=== PATIENT | female | born 1970 | race American Indian/Alaskan Native ===

== ENCOUNTER 2018-10-17 15:35 | Emergency (ER) | payer SELFPAY ==
[2018-10-17] MEDS ORDERED: ZITHROMAX PO ONE (16:23)
[2018-10-17] MEDS ORDERED: FLAGYL PO ONE (16:23)
[2018-10-17] MEDS ORDERED: DIFLUCAN PO ONE (16:23)
[2018-10-17] MEDS ORDERED: ROCEPHIN IM ONE (16:23)
[2018-10-17] MEDS ORDERED: CATAPRES PO ONE (16:23)
[2018-10-17] MEDS ORDERED: XYLOCAINE 1% MPF 5 mL INFILTRATI ONE (16:24)
--- NOTE | 2018-10-17 16:49 | Emergency Department Report ---
ED General Adult HPI - General Chief complaint: High BP Stated complaint: HIGH BP Time Seen by Provider: 10/17/18 16:23 Source: patient Mode of arrival: Ambulatory Limitations: No Limitations - History of Present Illness Initial comments: Patient is a 48-year-old female who is presenting with elevated blood pressure. Patient states she went to the [facility] because she has some vaginal itching and her blood pressure was taken and it was elevated. Patient states she ran out of blood pressure medicines approximately 2 months a go. 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 Patient denies any other symptoms. Patient states she has no chest pain shortness of breath focal neurological deficits nausea vomiting or diarrhea or decreased urination. - Related Data Previous Rx's Medication Instructions Recorded Last Taken Type Amlodipine Besylate [Norvasc] 5 mg PO DAILY #30 tablet 10/17/18 Unknown Rx Allergies Allergy/AdvReac Type Severity Reaction Status Date / Time IV dye Allergy Swelling Uncoded 10/17/18 15:38 ED Review of Systems ROS: Stated complaint: HIGH BP Other details as noted in HPI Comment: All other systems reviewed and negative ED Past Medical Hx - Past Medical History Hx Hypertension: Yes - Social History Smoking Status: Never Smoker Substance Use Type: None - Medications Home Medications: Home Medications Medication Instructions Recorded Confirmed Last Taken Type Amlodipine Besylate [Norvasc] 5 mg PO DAILY #30 tablet 10/17/18 Unknown Rx ED Physical Exam - General Limitations: No Limitations General appearance: alert, in no apparent distress - Head Head exam: Present: atraumatic, normocephalic - Eye Eye exam: Present: normal appearance - ENT ENT exam: Present: mucous membranes moist - Neck Neck exam: Present: normal inspection - Respiratory Respiratory exam: Present: normal lung sounds bilaterally. Absent: respiratory distress, wheezes, rales, rhonchi - Cardiovascular Cardiovascular Exam: Present: regular rate, normal rhythm. Absent: systolic murmur, diastolic murmur, rubs, gallop - GI/Abdominal GI/Abdominal exam: Present: soft, normal bowel sounds. Absent: distended, tenderness, guarding, rebound - Extremities Exam Extremities exam: Present: normal inspection - Back Exam Back exam: Present: normal inspection - Neurological Exam Neurological exam: Present: alert, oriented X3 - Psychiatric Psychiatric exam: Present: normal affect, normal mood - Skin Skin exam: Present: warm, dry, intact, normal color. Absent: rash ED Course Vital Signs 10/17/18 15:55 Temperature 98.5 F Pulse Rate 74 Respiratory 16 Rate Blood Pressure 221/111 [Left] O2 Sat by Pulse 100 Oximetry ED Medical Decision Making - Medical Decision Making Patient is a 48-year-old female who is presenting with elevated blood pressure. Patient has no evidence of any end organ damage at this time. Patient had her blood pressure addressed with [facility]. Patient will also receive prophylactic treatment for STDs as she states she is concerned which is why she went to the [facility]. Patient will be discharged home with prescription for Norvasc and the patient will have follow-up with some Cipro clinic. Critical care attestation.: If time is entered above; I have spent that time in minutes in the direct care of this critically ill patient, excluding procedure time. ED Disposition Clinical Impression: Hypertensive urgency Vaginitis Qualifiers: Chronicity: acute Qualified Code(s): N76.0 - Acute vaginitis Disposition: - TO HOME OR SELFCARE Is pt being admited?: No Does the pt Need Aspirin: No Condition: Stable Instructions: Hypertension (ED) Prescriptions: Amlodipine Besylate [Norvasc] 5 mg PO DAILY #30 tablet Referrals: DALE GIBSON MD [Referring] - 3-5 Days Time of Disposition: 16:57
[2018-10-17 17:51] LABS: Bacteria,Urine 1+ /HPF (Negative); Bilirubin,Urine NEG (Negative); Blood,Urine NEG (Negative); Color,Urine Yellow (Yellow); Mucus,Urine FEW /HPF; Protein,Urine <15 mg/dL mg/dL (Negative); Urobilinogen,Urine < 2.0 mg/dL (<2.0)
[2018-10-17 17:57] VITALS: BP 220/113
== END 2018-10-17 18:06 | disposition home or self-care (01) ==
LOC: ED 15:35
DX: I16.0 Hypertensive urgency (principal); N76.0 Acute vaginitis; Z91.041 Radiographic dye allergy status
CPT/HCPCS: 81001; 87086; 87591; 96372; 99283; J0696

== ENCOUNTER 2021-06-17 12:11 | Outpatient (CLI) | payer OTHER, SELFPAY | END 2021-06-17 12:12 | disposition home or self-care (01) | LOC: LABHHL 12:11 | PROVIDERS: ATTEND Otolaryngology | DX: R59.0 Localized enlarged lymph nodes (principal) | CPT/HCPCS: 88307 ==

== ENCOUNTER 2021-07-06 10:41 | Outpatient (CLI) | payer OTHER ==
--- NOTE | 2021-07-06 12:43 | Magnetic Resonance Report ---
MR thoracic spine wo con INDICATION / CLINICAL INFORMATION: 51 years Female; S22.050 COMPRESSION FRACTURE OF T6 W/ROUTINE HEALING. TECHNIQUE: Multisequence, multiplanar images of the thoracic spine were obtained. COMPARISON: None available. FINDINGS: ALIGNMENT: Minimal excessive kyphosis. VERTEBRAE:Grossly normal marrow signal and vertebral body height for age. Costovertebral, costotransverse, and facet joints demonstrate mild, multilevel areas of degenerative change. Overall, no significant foraminal narrowing appreciated. VISUALIZED SPINAL CORD: There is mild mass effect on the dorsal aspect of the thoracic cord at the T7 -8 level with subtle signal abnormality seen. 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 The thoracic cord is otherwise grossly normal in appearance. Visualized conus medullaris is grossly normal in appearance. INTERVERTEBRAL DISCS: Desiccation seen at multiple levels. There is minimal disc disease at various l evels. No dominant herniation or canal stenosis appreciated. PARASPINAL SOFT TISSUES: No significant abnormality. ADDITIONAL FINDINGS: None. IMPRESSION: 1. Abnormal appearance of the thoracic cord at the T7-8 level, as described above. Myelography might be helpful for further evaluation, if clinically warranted. Signer Name: Jesse Main MD, III Signed: 07/06/2021 12:39 PM Workstation Name: [id number]
== END 2021-07-06 10:42 | disposition home or self-care (01) ==
LOC: MRI 10:41
DX: S22.050D Wedge compression fracture of T5-T6 vertebra, subsequent encounter for fracture with routine healing (principal); M40.14 Other secondary kyphosis, thoracic region; X58.XXXD Exposure to other specified factors, subsequent encounter
CPT/HCPCS: 72146

== ENCOUNTER 2021-09-27 13:56 | Outpatient (CLI) | payer OTHER ==
--- NOTE | 2021-09-27 14:53 | XRay Report ---
XR shoulder BILAT 2+V INDICATION / CLINICAL INFORMATION: BILATERAL SHOULDER PAIN. COMPARISON: None available. FINDINGS: BONES/JOINT(S): No acute fracture or subluxation. Mild DJD of the AC joint in both shoulders. SOFT TISSUES: No significant abnormality. ADDITIONAL FINDINGS: None. IMPRESSION: 1. No acute findings. Signer Name: Neil Bull MD Signed: 09/27/2021 2:48 PM Workstation Name: [id number]
== END 2021-09-27 13:57 | disposition home or self-care (01) ==
LOC: XRAY 13:56
DX: M19.012 Primary osteoarthritis, left shoulder (principal); M19.011 Primary osteoarthritis, right shoulder

== ENCOUNTER 2021-10-22 06:58 | Outpatient (CLI) | payer OTHER ==
--- NOTE | 2021-10-22 10:30 | Magnetic Resonance Report ---
MR THORACIC SPINE WO/W CON INDICATION / CLINICAL INFORMATION: 51 years Female; M54.6 PAIN IN THORACIC SPINE. TECHNIQUE: Multisequence, multiplanar images of the thoracic spine were obtained. 18 cc of clariscan was admini stered for postcontrast imaging. COMPARISON: Noncontrast MRI thoracic spine 07/06/2021 FINDINGS: ALIGNMENT: Normal alignment. Minimal excessive kyphosis is again noted. VERTEBRAE:Grossly normal marrow signal and vertebral body height for age. Mild costovertebral, costo transverse and facet joints again demonstrate mild multilevel degenerative change. No significant sangeeta nge since the previous exam. VISUALIZED SPINAL CORD: Again seen is a focal subtle signal abnormality at the level of T7-8 on the d orsal surface of the cord measuring 8 x 4 x 9 mm. There is no evidence for abnormal enhancement follo wing administration of IV contrast. This remains suspicious for a small arachnoid web or cyst. Visua lized conus medullaris is grossly normal in appearance. No central canal stenosis or significant neur al foraminal narrowing. INTERVERTEBRAL DISCS: Stable mild diffuse disc desiccation. No significant bulging disc or herniation . PARASPINAL SOFT TISSUES: No significant abnormality. ADDITIONAL FINDINGS: None. IMPRESSION: No change since 07/06/2021 exam. Focal abnormality at the level of T7-8 is again seen and unchanged. T here is no evidence for abnormal enhancement following IV gadolinium. See above. Signer Name: José Miguel Ramirez Jr, MD Signed: 10/22/2021 10:26 AM Workstation Name: [id number]
== END 2021-10-22 06:59 | disposition home or self-care (01) ==
LOC: MRI 06:58
PROVIDERS: ATTEND Psychiatry & Neurology Neurology
DX: M51.34 Other intervertebral disc degeneration, thoracic region (principal); G96.198 Other disorders of meninges, not elsewhere classified
CPT/HCPCS: 72157; A9575

== ENCOUNTER 2021-11-21 15:51 | Emergency (ER) | payer OTHER ==
--- NOTE | 2021-11-21 16:47 | Emergency Department Report ---
ED General Adult HPI - General Chief complaint: High BP Stated complaint: HBP 245/110 Time Seen by Provider: 11/21/21 16:28 Source: patient, RN notes reviewed, old records reviewed Mode of arrival: Ambulatory Limitations: No Limitations - History of Present Illness Initial comments: The patient was evaluated in the emergency department for symptoms described in the history of present illness. He/she was evaluated in the context of the global COVID-19 pandemic, which necessitated consideration that the patient might be at risk for infection with the virus that causes COVID-19. Institutional protocols and algorithms that pertain to the evaluation of patients at risk for COVID-19 are in a state of rapid change based on information released by regulatory bodies including the CDC and federal and state organizations. These policies and algorithms were followed during the patient's care in the emergency department. Please note that these policies, procedures and recommendations changed on a rapid basis. This patient is a 51-year-old female. She presents to the ER today with a complaint of high blood pressure, frontal sinus pain, and muscular neck pain. The patient has recently relocated to [place] from [place]. She is currently supposed to be taking Norvasc, 10 mg daily, lisinopril HCTZ, 20/12.5, metoprolol, 50 mg twice daily. She also takes hydrocodone, and tenacity for chronic back pain. She ran out of her Norvasc a few days ago. The headache is frontal, and bitemporal. The headache is not described as sudden or thunderclap in nature, and is not the worst headache of her life. The muscular pain is in the paracervical muscular region. No recent trauma, surgery, or chiropractic manipulation. The patient reports that she works irregular hours, and typically sleeps from 7 PM to 2:30 AM. She does not know if she has a history of formally diagnosed obstructive sleep apnea, but describes a number of symptoms associate with obstructive sleep apnea, including loud breathing and snoring at night, falling asleep while watching TV and watching computers, weird and vivid dreams, and sensation of incomplete rest while sleeping. She reports that her physicians in [place] had difficulty controlling her blood pressure. 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 The patient also reports that she can tolerate IV dye and contrast, and specifically reports no airway symptoms associated with IV contrast administration. She has a distant history of hysterectomy. Patient makes no endorsement of loss of vision, chest pain, abdominal pain, shortness of breath, weakness/numbness. She is quite anxious about her blood pressure., -: Gradual, hour(s), days(s) Location: head, neck Quality: other (Throbbing and aching) Consistency: intermittent Improves with: none Worsens with: none - Related Data Previous Rx's Medication Instructions Recorded Last Taken Type Amlodipine Besylate [Norvasc] 5 mg PO DAILY #30 tablet 10/17/18 Unknown Rx Acetaminophen [Non-Aspirin Extra 500 mg PO Q6HR PRN #30 tablet 11/21/21 Unknown Rx Strength] Amlodipine Besylate [Norvasc] 10 mg PO QDAY #60 tab 11/21/21 Unknown Rx Metoclopramide [Reglan] 10 mg PO QID PRN #30 tablet 11/21/21 Unknown Rx Allergies Allergy/AdvReac Type Severity Reaction Status Date / Time IV dye Allergy Swelling Uncoded 10/17/18 15:38 ED Review of Systems ROS: Stated complaint: HBP 245/110 Other details as noted in HPI Constitutional: denies: fever Eyes: denies: eye discharge, vision change Respiratory: denies: cough Cardiovascular: denies: chest pain Gastrointestinal: denies: abdominal pain Musculoskeletal: myalgia Neurological: headache Psychiatric: anxiety ED Past Medical Hx - Past Medical History Hx Hypertension: Yes Additional medical history: aneuysm - Surgical History Additional Surgical History: Aneursym clip in brain - Social History Smoking Status: Never Smoker - Medications Home Medications: Home Medications Medication Instructions Recorded Confirmed Last Taken Type Amlodipine Besylate [Norvasc] 5 mg PO DAILY #30 tablet 10/17/18 Unknown Rx Acetaminophen [Non-Aspirin Extra 500 mg PO Q6HR PRN #30 tablet 11/21/21 Unknown Rx Strength] Amlodipine Besylate [Norvasc] 10 mg PO QDAY #60 tab 11/21/21 Unknown Rx Metoclopramide [Reglan] 10 mg PO QID PRN #30 tablet 11/21/21 Unknown Rx ED Physical Exam - General Limitations: No Limitations General appearance: alert, anxious, obese - Head Head exam: Present: atraumatic, normocephalic - Eye Eye exam: Present: normal appearance, PERRL, EOMI, other (Visual acuity intact to finger counting, color perception, reading at a close distance). Absent: nystagmus - ENT ENT exam: Present: normal exam, normal orophraynx, mucous membranes moist, normal external ear exam - Neck Neck exam: Present: normal inspection, full ROM. Absent: tenderness, meningismus - Respiratory Respiratory exam: Present: normal lung sounds bilaterally. Absent: respiratory distress, wheezes, rales, rhonchi, stridor, decreased breath sounds - Cardiovascular Cardiovascular Exam: Present: regular rate, normal rhythm, normal heart sounds. Absent: bradycardia, tachycardia, irregular rhythm, systolic murmur, diastolic murmur, rubs, gallop - GI/Abdominal GI/Abdominal exam: Present: soft. Absent: distended, tenderness, guarding, rebound, rigid, pulsatile mass - Extremities Exam Extremities exam: Present: normal inspection, full ROM, normal capillary refill, other (2+ pulses noted in the bilateral upper and lower extremities. There is no palpable cord. negative Homans sign. Muscular compartments are soft. The pelvis is stable.). Absent: pedal edema, calf tenderness - Back Exam Back exam: Present: normal inspection, muscle spasm. Absent: tenderness, CVA tenderness (R), CVA tenderness (L), paraspinal tenderness, vertebral tenderness - Neurological Exam Neurological exam: Present: alert (There is no past-pointing. There is no pronator drift. There is normal [id number]), oriented X3, normal gait, reflexes normal, other (No facial droop. Tongue midline. Extraocular movements intact bilaterally. Facial sensation intact to light touch in V1, V2, V3 distribution bilaterally. 5 and a 5 strength in 4 extremities. Sensation intact to light touch in 4 extremities.). Absent: motor sensory deficit - Psychiatric Psychiatric exam: Present: anxious - Skin Skin exam: Present: warm, dry, intact, normal color. Absent: rash ED Course Vital Signs 11/21/21 11/21/21 11/21/21 16:08 17:10 17:50 Temperature 98.9 F Pulse Rate 67 58 L Respiratory 20 17 Rate Blood Pressure 250/118 O2 Sat by Pulse 99 98 Oximetry 11/21/21 11/21/21 11/21/21 18:00 18:01 18:16 Temperature Pulse Rate 58 L 67 66 Respiratory 17 19 Rate Blood Pressure 204/104 202/96 202/96 O2 Sat by Pulse 98 98 Oximetry 11/21/21 11/21/21 11/21/21 18:30 18:46 19:00 Temperature Pulse Rate 55 L 55 L 55 L Respiratory 19 17 16 Rate Blood Pressure 200/105 183/92 182/94 O2 Sat by Pulse 96 97 98 Oximetry 11/21/21 11/21/21 11/21/21 19:16 19:30 19:45 Temperature Pulse Rate 55 L 56 L 58 L Respiratory 17 18 18 Rate Blood Pressure 179/88 200/105 190/87 O2 Sat by Pulse 96 99 98 Oximetry 11/21/21 11/21/21 20:01 20:21 Temperature Pulse Rate 62 67 Respiratory 17 23 Rate Blood Pressure 190/92 198/96 O2 Sat by Pulse 98 96 Oximetry - Reevaluation(s) Reevaluation #1: 11/21/21 17:19 Differential diagnosis, include but not limited to: Migraine headache, tension headache, cluster headache, muscular spasm, anxiety, intracranial hemorrhage Assessment and plan: 51-year-old female who is very anxious about high blood pressure, with a complaint of nonspecific headache, muscular neck pain, and high blood pressure. During the history and physical, patient perseverates regardi ng her hypertension. Reassurance is provided. Suspect undiagnosed obstructive sleep apnea. Discus sed natural history and consequences of sleep apnea with patient, and also discussed sleep disorder as a possible contributing factor for persistently elevated blood pressure. Headache is not sudden or thunderclap in nature, not maximal in intensity, not described as the worst headache of her life. This is very unlikely to be an intracranial hemorrhage, dissection or aneurysm. We will treat the patient's symptoms and anxiety. We will obtain a CT scan of the brain, and CT angiogram head and neck. Patient reports only itching with IV dye, and she will therefore be premedicated. We will also refill her Norvasc prescription. Patient counseled on need to follow-up with outpatient primary care doctor or sack sewer machine to arrange outpatient sleep testing, to rule in or rule out obstructive sleep apnea. 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 Noncontrast CT scan of the brain negative. Laboratory studies reviewed and appreciated. 11/21/21 20:28 Laboratory studies are essentially unremarkable. Patient reassessed. She reports complete resolution of symptoms. Blood pressure 169/[address] angiogram pending interpretation ED Medical Decision Making - Lab Data Result diagrams: 11/21/21 17:25 11/21/21 17:25 Vital Signs 11/21/21 16:08 Temperature 98.9 F Pulse Rate 67 Respiratory 20 Rate Blood Pressure 250/118 O2 Sat by Pulse 99 Oximetry Lab Results 11/21/21 11/21/21 Range/Units 17:25 17:25 Hgb 12.8 (10.1-14.3) gm/dl Hct 39.0 (30.3-42.9) % Sodium 144 (137-145) mmol/L Potassium 3.8 (3.6-5.0) mmol/L Chloride 103.9 (98-107) mmol/L Carbon Dioxide 27 (22-30) mmol/L Anion Gap 17 mmol/L BUN 18 H (7-17) mg/dL Creatinine 0.7 (0.6-1.2) mg/dL Estimated GFR > 60 ml/min BUN/Creatinine Ratio 26 % Glucose 91 (65-100) mg/dL Calcium 10.5 H (8.4-10.2) mg/dL Total Bilirubin 0.20 (0.1-1.2) mg/dL AST 34 (5-40) units/L ALT 58 H (7-56) units/L Alkaline Phosphatase 118 (35-129) units/L Total Creatine Kinase 97 (30-135) units/L Total Protein 7.8 (6.3-8.2) g/dL Albumin 4.5 (3.9-5) g/dL Albumin/Globulin Ratio 1.4 % Vital Signs 11/21/21 11/21/21 11/21/21 16:08 17:10 17:50 Temperature 98.9 F Pulse Rate 67 58 L Respiratory 20 17 Rate Blood Pressure 250/118 O2 Sat by Pulse 99 98 Oximetry 11/21/21 11/21/21 11/21/21 18:00 18:01 18:16 Temperature Pulse Rate 58 L 67 66 Respiratory 17 19 Rate Blood Pressure 204/104 202/96 202/96 O2 Sat by Pulse 98 98 Oximetry 11/21/21 11/21/21 11/21/21 18:30 18:46 19:00 Temperature Pulse Rate 55 L 55 L 55 L Respiratory 19 17 16 Rate Blood Pressure 200/105 183/92 182/94 O2 Sat by Pulse 96 97 98 Oximetry 11/21/21 11/21/21 11/21/21 19:16 19:30 19:45 Temperature Pulse Rate 55 L 56 L 58 L Respiratory 17 18 18 Rate Blood Pressure 179/88 200/105 190/87 O2 Sat by Pulse 96 99 98 Oximetry - EKG Data -: EKG Interpreted by Wi EKG shows normal: sinus rhythm Rate: normal - EKG Data 11/21/21 17:24 The EKG is interpreted at 16: 14 Sinus rhythm, 72 bpm. Normal axis, normal P wave axis, left ventricular hypertrophy/high left ventricular voltage, normal P wave axis. There is motion artifact. This is not a STEMI. QTc 460 ms - Radiology Data Radiology results: report reviewed, image reviewed NONENHANCED CT SCAN OF THE HEAD: INDICATION / CLINICAL INFORMATION: 51 years Female; headache and htn. TECHNIQUE: Routine CT head without contrast. All CT scans at this location are performed using CT dose reduction for [place] by means of automated exposure control. COMPARISON: None. FINDINGS: BRAIN / INTRACRANIAL CONTENTS: Artifacts from coiling of the right posterior communicating artery aneurysm; no recent or subarachnoid hemorrhage or ischemia No acute hemorrhage, mass effect, midline shift, hydrocephalus, or acute, large territorial infarct. No chronic infarct or focal atrophy. Normal brain volume and ventricular/sulcal size for age. Subtle white matter low-attenuation areas in the left superior frontal gyrus area Chronic ischemia CRANIOCERVICAL JUNCTION: No significant abnormality. ORBITS: No significant abnormality of visualized orbits. SINUSES / MASTOIDS: No significant abnormality of the visualized paranasal sinuses or mastoid air cells. ADDITIONAL FINDINGS: None. 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 TECHNIQUE: Routine CTA of the neck was performed. 3-D/MIP reformats were postprocessed. Percentage stenosis is determined by direct quantitative measurements of diseased internal carotid artery diameter compared with normal distal internal carotid artery reference segments or by criteria similar to NASCET where applicable.All CT scans at this location are performed using CT dose reduction for ALARA by means of automated exposure control CONTRAST: 100 ml of opaque 350 FINDINGS: Aortic arch: No significant abnormality. Cervical vertebral arteries: No significant abnormality. Common carotid arteries: No significant abnormality. Carotid bifurcations: Normal Cervical internal carotid arteries: No significant abnormality. Additional findings: None. IMPRESSION: 1. No significant abnormality. CTA HEAD WITH CONTRAST TECHNIQUE: Routine non-contrast CT Head, CTA of the head and post-contrast CT Head are performed. 3-D/MIP reformats postprocessed. All CT scans at this location are performed using CT dose reduction for ALARA by means of automated exposure control FINDINGS: Coiling of the left posterior communicating artery aneurysm CTA Head: Intracranial vertebral arteries: No significant abnormality. Basilar artery: No significant abnormality. Posterior cerebral arteries: No significant abnormality. Intracranial internal carotid arteries: Right internal carotid artery: Normal from the skull base anterior cavernous segment; narrowing of the clinoidal and ophthalmic segmentsof the right internal carotid artery; communicating segment of the right internal carotid artery and right internal carotid artery terminus normal Left internal carotid artery: Normal from skull base to the anterior cavernous segment; narrowing of the clinoid no and ophthalmic segment; communicating segment normal; coiling of the left posterior communicating artery aneurysm; Anterior cerebral arteries: No significant abnormality. Middle cerebral arteries: No significant abnormality. Dural venous sinuses:Not optimally opacified. No significant abnormality. Additional findings: None. IMPRESSION: Coiling of the left posterior communicating artery aneurysm; no CT findings to suggest recanalized left posterior communicating aneurysm; no new aneurysm Nrrowing of the clinoid no and ophthalmic segments of both internal carotid arteries Signer Name: Tushar Ocampo MD Signed: 11/21/2021 7:57 PM Workstation Name: [id number] Critical care attestation.: If time is entered above; I have spent that time in minutes in the direct care of this critically ill patient, excluding procedure time. ED Disposition Clinical Impression: Elevated blood pressure reading, Medication refill, Neck pain, Headache, Sleep disorder Disposition: 01 HOME / SELF CARE / HOMELESS Is pt being admited?: No Does the pt Need Aspirin: No Condition: Good Additional Instructions: Recommend that patient get at least 8 hours of good quality uninterrupted sleep each and evening. Recommend that patient engage in normal circadian rhythm as best as her job allows. Avoid consumption of alcohol, tobacco, smoke products as well as caffeinated beverages and substances. Recommend follow-up with an outpatient primary care doctor, sack sewer machine or sleep specialist for chronic high blood pressure, and evaluation for outpatient sleep study for possible obstructive sleep apnea. The patient may follow-up with her outpatient primary care doctor or sack sewer machine, will may follow-up with an outpatient sleep specialist, such as Dr. Potter, for outpatient sleep study. Recommend follow-up within the next 7 to 10 days. Patient will receive a 1 month refill on her amlodipine/Norvasc. The patient may also take Tylenol or Motrin as needed for headache and neck pain, alt ernating with the prescribed Reglan, as needed for headache, nausea and vomiting. Please return to the emergency room right away with new pain, worsened pain, migration of pain, projectile vomiting, change in mental status, confusion, inability tolerate liquid feeds, new, worsened or different symptoms not present on the initial emergency room evaluation Prescriptions: Acetaminophen [Non-Aspirin Extra Strength] 500 mg PO Q6HR PRN #30 tablet PRN Reason: Pain , Severe (7-10) Amlodipine Besylate [Norvasc] 10 mg PO QDAY #60 tab Metoclopramide [Reglan] 10 mg PO QID PRN #30 tablet PRN Reason: Nausea Referrals: ROSALINDA POTTER MD [Staff Physician] - 7-10 days Forms: Work/School Release Form(ED)
--- NOTE | 2021-11-21 17:33 | Cat Scan Report ---
NONENHANCED CT SCAN OF THE HEAD: INDICATION / CLINICAL INFORMATION: 51 years Female; headache and htn. TECHNIQUE: Routine CT head without contrast. All CT scans at this location are performed using CT dos e reduction for ALARA by means of automated exposure control. COMPARISON: None. FINDINGS: BRAIN / INTRACRANIAL CONTENTS: Artifacts from coiling of the right posterior communicating artery ane urysm; no recent or subarachnoid hemorrhage or ischemia No acute hemorrhage, mass effect, midline shift, hydrocephalus, or acute, large territorial infarct. No chronic infarct or focal atrophy. Normal brain volume and ventricular/sulcal size for age. Subtle white matter low-attenuation areas in the left superior frontal gyrus area Chronic ischemia CRANIOCERVICAL JUNCTION: No significant abnormality. ORBITS: No significant abnormality of visualized orbits. SINUSES / MASTOIDS: No significant abnormality of the visualized paranasal sinuses or mastoid air mayra ls. ADDITIONAL FINDINGS: None. 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
[2021-11-21] MEDS: diphenhydrAMINE 50 MG/ML VIAL IV ONE (17:41)
[2021-11-21] MEDS: MIDAZOLAM 2 MG/2 ML INJ IV ONE (17:41)
[2021-11-21] MEDS: METOCLOPRAMIDE 10 MG/2 ML INJ IV ONE (17:42)
[2021-11-21] MEDS: FAMOTIDINE 20 MG/2 ML INJ IV ONE (17:42)
[2021-11-21] MEDS: methylPREDNISolone Sod Succinate 125 MG/2 ML INJ IV ONE (17:43)
[2021-11-21] MEDS: amLODIPine 5 MG TAB PO ONE (18:01)
[2021-11-21 18:11] LABS: Hemoglobin 12.8 gm/dl (10.1-14.3)
[2021-11-21 18:35] LABS: Alanine Aminotransferase 58 units/L (7-56); Albumin 4.5 g/dL (3.9-5); Blood Urea Nitrogen 18 mg/dL (7-17); Calcium 10.5 mg/dL (8.4-10.2); Hemolysis Index 9
[2021-11-21 19:05] LABS: BUN/Creatinine Ratio 26
[2021-11-21] MEDS ORDERED: SODIUM CHLORIDE 0.9% 1000 ML 1,000 ML ONE (20:23)
[2021-11-21] MEDS: SODIUM CHLORIDE 0.9% 500 ML 500 ML IV ONE (20:27)
[2021-11-21 20:28] VITALS: BP 198/96
--- NOTE | 2021-11-21 21:01 | Cat Scan Report ---
CTA NECK WITH CONTRAST HISTORY: Headaches; neck pain COMPARISON: None. TECHNIQUE: Routine CTA of the neck was performed. 3-D/MIP reformats were postprocessed. Percentage s tenosis is determined by direct quantitative measurements of diseased internal carotid artery diamete r compared with normal distal internal carotid artery reference segments or by criteria similar to NA SCET where applicable.All CT scans at this location are performed using CT dose reduction for ALARA b y means of automated exposure control CONTRAST: 100 ml of opaque 350 FINDINGS: Aortic arch: No significant abnormality. Cervical vertebral arteries: No significant abnormality. Common carotid arteries: No significant abnormality. Carotid bifurcations: Normal Cervical internal carotid arteries: No significant abnormality. Additional findings: None. IMPRESSION: 1. No significant abnormality. CTA HEAD WITH CONTRAST TECHNIQUE: Routine non-contrast CT Head, CTA of the head and post-contrast CT Head are performed. 3-D /MIP reformats postprocessed. All CT scans at this location are performed using CT dose reduction for ALARA by means of automated exposure control FINDINGS: Coiling of the left posterior communicating artery aneurysm CTA Head: Intracranial vertebral arteries: No significant abnormality. Basilar artery: No significant abnormality. Posterior cerebral arteries: No significant abnormality. Intracranial internal carotid arteries: Right internal carotid artery: Normal from the skull base anterior cavernous segment; narrowing of th e clinoidal and ophthalmic segmentsof the right internal carotid artery; communicating segment of the right internal carotid artery and right internal carotid artery terminus normal Left internal carotid artery: Normal from skull base to the anterior cavernous segment; narrowing of the clinoid no and ophthalmic segment; communicating segment normal; coiling of the left posterior co mmunicating artery aneurysm; Anterior cerebral arteries: No significant abnormality. Middle cerebral arteries: No significant abnormality. Dural venous sinuses:Not optimally opacified. No significant abnormality. Additional findings: None. IMPRESSION: Coiling of the left posterior communicating artery aneurysm; no CT findings to suggest recanalized le ft posterior communicating aneurysm; no new aneurysm Nrrowing of the clinoid no and ophthalmic segments of both internal carotid arteries Signer Name: Tushar Ocampo MD Signed: 11/21/2021 8:57 PM Workstation Name: [id number]
--- NOTE | 2021-11-25 11:54 | Electrocardiograph Report ---
[facility] Test Date: 2021-11-21 Test Time: 16:14:52 Pat Name: ELIESER FINCH Department: Room: Gender: F Vehicle Check In Clerk: LI : 1970 Requested By: KAM MAZARIEGOS Order Number: [id number] Reading MD: Randi Wheeler Measurements Intervals [place] Rate: 72 P: 14 MD: 165 QRS: 42 QRSD: 82 T: 39 QT: 422 QTc: 462 Interpretive Statements Sinus rhythm Probable left atrial enlargement Probable left ventricular hypertrophy No previous ECG available for comparison Electronically Signed On 11-25-2021 11:54:24 EDT by Randi Wheeler
== END 2021-11-21 21:43 | disposition home or self-care (01) ==
LOC: ED 15:51
DX: I10 Essential (primary) hypertension (principal); Z76.0 Encounter for issue of repeat prescription; R51.9 Headache, unspecified; M54.2 Cervicalgia; G47.9 Sleep disorder, unspecified; Z91.09 Other allergy status, other than to drugs and biological substances; Z79.899 Other long term (current) drug therapy
CPT/HCPCS: 36415; 70450; 70496; 70498; 80053; 82550; 85014; 85018; 93005; 96374; 96375; 99284; J1200; J2250; J2765; J2930; J3490; J7030; Q9967